=== PATIENT | female | born 1980 | race Caucasian/White ===

== ENCOUNTER 2017-09-17 10:18 | Observation (INO) | payer MEDICAID ==
[~2017-09-17] VITALS: Ht 160 cm; Wt 87.0 kg
[2017-09-17 10:25] VITALS: BP 130/69; PULSE 84; RESP 16; TEMP 99; O2SAT 97
[2017-09-17] MEDS ORDERED: ASPIRIN 81 MG CHEW TAB PO ONE (10:45)
[2017-09-17] MEDS ORDERED: SODIUM CHLORIDE 0.9% FLUSH 10 ML FLUSH IVF PRN (10:45)
--- NOTE | 2017-09-17 10:53 | PD ---
HPI . Chest pain Chief Complaint: Chest Pain Time Seen by Provider: 10:41 Travel History International Travel<30 days: No Contact w/Intl Traveler<30days: No Traveled to known affect area: No History of Present Illness HPI This patient presents with a three-day history of chest pain. The pain has been intermittent. It is getting progressively worse. She currently rates the pain at 7/10. She has not noticed any exacerbating or relieving factors. She states that the episodes last for just a few minutes and are associated with some mild diaphoresis. She also has noted some muscle spasms in both her left upper and left lower extremity which started at about the same time. She is a smoker and reports a strong family history for coronary artery disease. She states that her father from heart attack at age 58. [facility] Past Medical History Medical History: Denies Significant Hx Diminished Hearing: No Influenza Vaccination: No ?: Not LMP: NOW Past Surgical History Section: Yes (TWICE) Other Surgery: Yes (LUNG BIOPSY) Social History Alcohol Use: No Tobacco Use: Yes Allergies-Medications (Allergen,Severity, Reaction): Coded Allergies: caffeine (Verified Allergy, Unknown, 09/17/17) Reported Meds & Prescriptions Reported Meds & Active Scripts Active No Active Prescriptions or Reported Medications Review of Systems Except as stated in HPI: all other systems reviewed are Neg Physical Exam Narrative GENERAL: Awake and alert and in no acute distress. SKIN: Warm and dry. Normal color and turgor. HEAD: Normocephalic/atraumatic. EYES: Pupils are equal. Extraocular movements are intact. NECK: Normal range of motion. CARDIOVASCULAR: Regular rate and rhythm. Heart sounds are normal. RESPIRATORY: Nonlabored respirations. Lungs are clear with full air movement throughout. MUSCULOSKELETAL: Atraumatic. There is no calf tenderness or swelling. NEUROLOGICAL: Nonfocal. PSYCHIATRIC: Appropriate mood and affect. Data Data Last Documented VS Vital Signs Date Time Temp Pulse Resp B/P (MAP) Pulse Ox O2 Delivery O2 Flow Rate FiO2 09/17/17 11:54 66 09/17/17 11:24 18 133/85 (101) 97 Room Air 09/17/17 10:25 99.0 Orders Orders Basic Metabolic Panel (Bmp) (09/17/17 10:42) Complete Blood Count With Diff (09/17/17 10:42) Magnesium (Mg) (09/17/17 10:42) Troponin I (09/17/17 10:42) Chest, Single Ap (09/17/17 10:42) Ecg Monitoring (09/17/17 10:42) Iv Access Insert/Monitor (09/17/17 10:42) Oximetry (09/17/17 10:42) Aspirin Chew (Aspirin Chew) (09/17/17 10:45) Sodium Chloride 0.9% Flush (Ns Flush) (09/17/17 10:45) D-Dimer (09/17/17 10:50) Admit Order (Ed Use Only) (09/17/17 ) Vice Investigator / Telemetry CLARISSA.Q8H (09/17/17 12:30) Vital Signs (Adult) Q4H (09/17/17 12:30) Diet Npo (09/18/17 Breakfast) Diet Heart Healthy (09/17/17 Lunch) Activity Oob With Assistance (09/17/17 12:30) Labs Laboratory Tests Test 09/17/17 10:55 09/17/17 11:31 White Blood Count 11.3 TH/MM3 Red Blood Count 5.64 MIL/MM3 Hemoglobin 14.9 GM/DL Hematocrit 45.9 % Mean Corpuscular Volume 81.4 FL Mean Corpuscular Hemoglobin 26.5 PG Mean Corpuscular Hemoglobin Concent 32.5 % Red Cell Distribution Width 14.7 % Platelet Count 383 TH/MM3 Mean Platelet Volume 10.0 FL Neutrophils (%) (Auto) 55.0 % Lymphocytes (%) (Auto) 31.8 % Monocytes (%) (Auto) 6.8 % Eosinophils (%) (Auto) 3.5 % Basophils (%) (Auto) 2.9 % Neutrophils # (Auto) 6.2 TH/MM3 Lymphocytes # (Auto) 3.6 TH/MM3 Monocytes # (Auto) 0.8 TH/MM3 Eosinophils # (Auto) 0.4 TH/MM3 Basophils # (Auto) 0.3 TH/MM3 CBC Comment DIFF FINAL Differential Comment D-Dimer Quantitative (PE/DVT) 0.28 MG/L FEU Blood Urea Nitrogen 8 MG/DL Creatinine 0.88 MG/DL Random Glucose 112 MG/DL Calcium Level 9.6 MG/DL Magnesium Level 2.1 MG/DL Sodium Level 138 MEQ/L Potassium Level 3.7 MEQ/L Chloride Level 107 MEQ/L Carbon Dioxide Level 24.1 MEQ/L Anion Gap 7 MEQ/L Estimat Glomerular Filtration Rate 72 ML/MIN Troponin I LESS THAN 0.02 NG/ML MDM Medical Decision Making Medical Screen Exam Complete: Yes Emergency Medical Condition: Yes Interpretation(s) EKG shows a sinus rhythm with a rate of 94. No ST segment elevation or depression noted. Differential Diagnosis Differential diagnosis of chest pain includes but is not limited to musculoskeletal pain, pulmonary embolism, acute coronary syndrome, pneumonia, pleurisy Narrative Course This patient presents with a chief complaint of chest pain. An IV has been started. She has been given an aspirin. Cardiac evaluation is in process. There is also a d-dimer pending. Last Impressions Chest X-Ray 09/17/17 1042 Signed Impressions: Service Date/Time: Sunday, September 17, 2017 11:01 - CONCLUSION: Normal examination for a patient of this age. Gerardo Norton MD CBC Diagram 09/17/17 10:55 BMP Diagram 09/17/17 11:31 Calcium Level 9.6, Magnesium Level 2.1 trop < 0.02 D-dimer 0.28 The patient is amenable to admission to observation to the chest pain center. Physician Communication Physician Communication Dr. Rubalcava will admit her to the chest pain center. Diagnosis Primary Impression: Chest pain Qualified Codes: R07.9 - Chest pain, unspecified Admitting Information Admitting Physician Requests: Observation Scripts No Active Prescriptions or Reported Meds Condition: Stable Jordana Moya MD Sep 17, 2017 10:53
[2017-09-17 10:54] VITALS: BP 130/72; PULSE 84; RESP 18; O2SAT 98
[2017-09-17 11:10] LABS: AUTOMATED NEUTROPHIL # 6.2 TH/MM3 (1.8-7.7); BASOPHIL # 0.3 TH/MM3 (0-0.2); BASOPHIL % 2.9 % (0.0-2.0); EOSINOPHIL # 0.4 TH/MM3 (0-0.4); EOSINOPHIL % 3.5 % (0.0-4.0); HEMATOCRIT 45.9 % (35.0-46.0); HEMOGLOBIN 14.9 GM/DL (11.6-15.3); LYMPH % 31.8 % (9.0-44.0); LYMPHOCYTE # 3.6 TH/MM3 (1.0-4.8); MEAN CELL VOLUME 81.4 FL (80.0-100.0); MEAN CORPUSCULAR HEMOGLOBIN 26.5 PG (27.0-34.0); MEAN CORPUSCULAR HGB CONC 32.5 % (32.0-36.0); MONO % 6.8 % (0.0-8.0); MONOCYTE # 0.8 TH/MM3 (0-0.9); PLATELET COUNT 383 TH/MM3 (150-450); RED BLOOD COUNT 5.64 MIL/MM3 (4.00-5.30); RED CELL DISTRIBUTION WIDTH 14.7 % (11.6-17.2); WHITE BLOOD COUNT 11.3 TH/MM3 (4.0-11.0)
[2017-09-17 11:24] VITALS: BP 133/85; PULSE 88; RESP 18; O2SAT 97
--- NOTE | 2017-09-17 11:31 | RADRPT ---
EXAM DATE/TIME: 09/17/2017 11:01 [facility] COMPARISON: No previous studies available for comparison. INDICATIONS : Chest pain. MEDICAL HISTORY : right fungal lung mass SURGICAL HISTORY : right lung biopsy ENCOUNTER: Initial ACUITY: 3 days PAIN SCORE: 7/10 LOCATION: Bilateral chest FINDINGS: A single view of the chest demonstrates the lungs to be symmetrically aerated without evidence of mas s, infiltrate or effusion. The cardiomediastinal contours are unremarkable. Osseous structures are intact. CONCLUSION: Normal examination for a patient of this age. Gerardo Norton MD on September 17, 2017 at 11:29 Board Certified Radiologist. This report was verified electronically.
[2017-09-17 11:51] LABS: CHLORIDE 107 MEQ/L (98-107); SODIUM (NA) 138 MEQ/L (136-145)
[2017-09-17 11:54] LABS: BICARBONATE 24.1 MEQ/L (21.0-32.0); BLOOD UREA NITROGEN 8 MG/DL (7-18); CALCIUM 9.6 MG/DL (8.5-10.1); GLUCOSE,RANDOM 112 MG/DL (74-106); MAGNESIUM 2.1 MG/DL (1.5-2.5)
[2017-09-17 11:58] LABS: CREATININE 0.88 MG/DL (0.50-1.00); GLOMERULAR FILTRATION RATE 72 ML/MIN (>89)
[2017-09-17 12:02] LABS: TROPONIN I LESS THAN 0.02 NG/ML (0.02-0.05)
[2017-09-17] MEDS ORDERED: ACETAMINOPHEN/HYDROcodone 325 MG/7.5 MG TAB PO PRN (13:00)
[2017-09-17] MEDS ORDERED: NITROGLYCERIN 0.4 MG SL 25 TABS/BTL SL PRN (13:00)
[2017-09-17] MEDS ORDERED: ACETAMINOPHEN 500 MG CPLT PO PRN (13:00)
[2017-09-17] MEDS ORDERED: ONDANSETRON HCL 4 MG/2 ML VIAL IV PUSH PRN (13:00)
[2017-09-17] MEDS ORDERED: SODIUM CHLORIDE 0.9% FLUSH 10 ML FLUSH IV FLUSH PRN (13:00)
[2017-09-17 13:34] VITALS: BP 109/71; PULSE 65; RESP 18; O2SAT 98
[2017-09-17] MEDS ORDERED: MORPHINE SULFATE 2 MG/ML INJ IV PUSH PRN (13:45)
[2017-09-17 14:00] VITALS: BP 116/70; PULSE 68; RESP 14; TEMP 96.8; O2SAT 98
--- NOTE | 2017-09-17 14:38 | HHI.HP ---
[facility] Service [place] [facility] Primary Care Physician No Primary Care Physician Admission Diagnosis chest pain Diagnoses: (1) Chest pain Diagnosis: Principal Chief Complaint: Chest pain Travel History International Travel<30 Days: No Contact w/Intl Traveler <30 Da: No Traveled to Known Affected Are: No History of Present Illness This is a 37-year-old female with no chronic medical illnesses who presented to the hospital because three-day history of chest discomfort. Patient states over the last 3 days she is experiencing a left-sided chest pain that radiates into her back, up into her neck and one small spot into her shoulder blade. She states that is intermittent lasting for 1 minute at a time usually starts that is 7/10 making get as high as 9/10 on a pain scale. It resolved on its own. She indicates that nothing causes the pain happened. She could be at rest, watching TV and the pain can develop. She denies any nausea, vomiting, lightheadedness, dizziness, shortness of breath, dyspnea. She states that she is sweaty during the episodes and feels weak. She does have significant family history with father at age 58 from myocardial infarction so she came to the hospital for evaluation. Patient had workup done emergency department was unremarkable. Initial cardiac enzymes are negative, EKG was sinus rhythm with nonspecific T-wave abnormality. Is recommended by the ER physician that patient be observed in the chest pain center for further evaluation management. Review of Systems Cardiovascular: COMPLAINS OF: Chest pain Except as stated in HPI: all other systems reviewed are Neg Past Family Social History Past Medical History History of right lung fungal infection Past Surgical History Lung biopsy Right knee surgery Cholecystectomy 2 Reported Medications Reported Meds & Active Scripts Active No Active Prescriptions or Reported Medications Allergies: Coded Allergies: caffeine (Verified Allergy, Unknown, 09/17/17) Family History Reviewed is significant for father at age 58 from heart disease, mother is alive at 61. No indication of any diabetes, cancer, seizure, stroke Social History Patient continues smoke a quarter pack a cigarettes a day she is to smoke 2 pack a cigarettes a day since he was 15 years old. Patient has any alcohol or illicit drugs Physical Exam Vital Signs Vital Signs Date Time Temp Pulse Resp B/P (MAP) Pulse Ox O2 Delivery O2 Flow Rate FiO2 09/17/17 13:53 09/17/17 13:34 65 18 109/71 (84) 98 Room Air 09/17/17 13:34 60 09/17/17 11:54 66 09/17/17 11:24 88 18 133/85 (101) 97 Room Air 09/17/17 10:54 84 18 130/72 (91) 98 Room Air 09/17/17 10:36 88 99 Room Air 09/17/17 10:25 99.0 84 16 130/69 (89) 97 Physical Exam GENERAL: Well-developed, well-nourished, in no acute distress. alert and orientated HEENT: Head is normocephalic without any lesions or masses noted. Facial features are symmetric. Eyes: Pupils equal round reactive to light. Extraocular muscles are intact. Conjunctivae were clear. Oropharyngeal: Pharynx without any erythema edema. Tongue is midline without deviation. Buccal mucosa is moist without any masses or lesions NECK: Supple without any masses. Trachea midline no deviation. No JVD, no bruits are appreciated CARDIAC: Regular rhythm, regular rate. S1/S2 are heard. No murmurs gallops or rubs. LUNGS: Clear to auscultation bilaterally. No wheeze, rhonchi or rales. No use of accessory muscles on inspiration or expiration. ABDOMEN: Soft, nontender. Nondistended. Bowel sounds heard in all 4 quadrants. No organomegaly or masses. Negative rebound, negative guarding EXTREMITIES: No edema, pulses are equal bilaterally. No cyanosis or clubbing NEUROLOGY: Mood and affect appear appropriate. Cranial nerves II through XII grossly intact. Muscle strength 5/5 in upper and lower extremities bilaterally. Deep tendon reflexes are 2+ in upper and lower extremities bilaterally. Laboratory Laboratory Tests Test 09/17/17 10:55 09/17/17 11:31 White Blood Count 11.3 Red Blood Count 5.64 Hemoglobin 14.9 Hematocrit 45.9 Mean Corpuscular Volume 81.4 Mean Corpuscular Hemoglobin 26.5 Mean Corpuscular Hemoglobin Concent 32.5 Red Cell Distribution Width 14.7 Platelet Count 383 Mean Platelet Volume 10.0 Neutrophils (%) (Auto) 55.0 Lymphocytes (%) (Auto) 31.8 Monocytes (%) (Auto) 6.8 Eosinophils (%) (Auto) 3.5 Basophils (%) (Auto) 2.9 Neutrophils # (Auto) 6.2 Lymphocytes # (Auto) 3.6 Monocytes # (Auto) 0.8 Eosinophils # (Auto) 0.4 Basophils # (Auto) 0.3 CBC Comment DIFF FINAL Differential Comment D-Dimer Quantitative (PE/DVT) 0.28 Blood Urea Nitrogen 8 Creatinine 0.88 Random Glucose 112 Calcium Level 9.6 Magnesium Level 2.1 Sodium Level 138 Potassium Level 3.7 Chloride Level 107 Carbon Dioxide Level 24.1 Anion Gap 7 Estimat Glomerular Filtration Rate 72 Troponin I LESS THAN 0.02 Result Diagram: 09/17/17 1055 09/17/17 1131 Imaging Last Impressions Chest X-Ray 09/17/17 1042 Signed Impressions: Service Date/Time: Sunday, September 17, 2017 11:01 - CONCLUSION: Normal examination for a patient of this age. MD Marcin Jara VTE Risk Assessment Caprinmason VTE Risk Assessment: No/Low Risk (score <= 1) Caprini Risk Assessment Model Point Value = 1 Point Value = 2 Point Value = 3 Point Value = 5 Age 41-60 Minor surgery BMI > 25 kg/m2 Swollen legs Varicose veins or History of unexplained or recurrent spontaneous Oral contraceptives or hormone replacement Sepsis (< 1 month) Serious lung disease, including pneumonia (< 1 month) Abnormal pulmonary function Acute myocardial infarction Congestive heart failure (< 1 month) History of inflammatory bowel disease Medical patient at bed rest Age 61-74 Arthroscopic surgery Major open surgery (> 45 min) Laparoscopic surgery (> 45 min) Malignancy Confined to bed (> 72 hours) Immobilizing plaster cast Central venous access Age >= 75 History of VTE Family history of VTE Factor V Leiden Prothrombin [id number] Lupus anticoagulant Anticardiolipin antibodies Elevated serum homocysteine Heparin-induced thrombocytopenia Other congenital or acquired thrombophilia Stroke (< 1 month) Elective arthroplasty Hip, pelvis, or leg fracture Acute spinal cord injury (< 1 month) Prophylaxis Regimen Total Risk Factor Score Risk Level Prophylaxis Regimen 0-1 Low Early ambulation 2 Moderate Order ONE of the following: *Sequential Compression Device (SCD) *Heparin 5000 units SQ BID 3-4 Higher Order ONE of the following medications: *Heparin 5000 units SQ TID *Enoxaparin/Lovenox 40 mg SQ daily (WT < 150 kg, CrCl > 30 mL/min) *Enoxaparin/Lovenox 30 mg SQ daily (WT < 150 kg, CrCl > 10-29 mL/min) *Enoxaparin/Lovenox 30 mg SQ BID (WT < 150 kg, CrCl > 30 mL/min) AND/OR *Sequential Compression Device (SCD) 5 or more Highest Order ONE of the following medications: *Heparin 5000 units SQ TID (Preferred with Epidurals) *Enoxaparin/Lovenox 40 mg SQ daily (WT < 150 kg, CrCl > 30 mL/min) *Enoxaparin/Lovenox 30 mg SQ daily (WT < 150 kg, CrCl > 10-29 mL/min) *Enoxaparin/Lovenox 30 mg SQ BID (WT < 150 kg, CrCl > 30 mL/min) AND *Sequential Compression Device (SCD) Assessment and Plan Assessment and Plan Chest pain, atypical Patient with risk factors include tobacco use, family history of heart disease Patient has been ruled out for acute coronary event with serial cardiac enzymes have remained negative Serial EKGs are reviewed by myself showed sinus rhythm, nonspecific T-wave abnormality without any changes Exercise stress test was performed that did not indicate any acute abnormality or ischemia Continue aspirin, nitroglycerin as needed, morphine for pain control DVT prevention sequential compression devices Discharge disposition Discharge home in stable condition Activity: Ad aren. Diet: Healthy heart diet Medications per medication reconciliation Follow-up primary medical doctor in one week Problem Qualifiers (1) Chest pain: Qualified Codes: R07.9 - Chest pain, unspecified Michelet Rojas Sep 17, 2017 14:37
[2017-09-17 15:38] LABS: TROPONIN I LESS THAN 0.02 NG/ML (0.02-0.05)
[2017-09-17 16:00] VITALS: BP 113/58; PULSE 57; RESP 14; TEMP 97.1; O2SAT 97
--- NOTE | 2017-09-17 16:38 | EKG ---
Date Performed: 09/17/2017 Time Performed: 10:34:52 PTAGE: 37 years EKG: Sinus rhythm NONSPECIFIC T-WAVE ABNORMALITY BORDERLINE ECG NO PREVIOUS TRACING DOCTOR: Oniel Mock Interpretating Date/Time 09/17/2017 16:37:28
--- NOTE | 2017-09-17 17:09 | HHI.DCPOC ---
Discharge Care Plan Diagnosis: (1) Chest pain Goals to Promote Your Health * To prevent worsening of your condition and complications * To maintain your health at the optimal level Directions to Meet Your Goals Take your medications as prescribed Follow your dietary instruction Follow activity as directed Keep your appointments as scheduled Take your immunizations and boosters as scheduled If your symptoms worsen call your PCP, if no PCP go to Urgent Care Center or Emergency Room Smoking is Dangerous to Your Health. Avoid second hand smoke Call the 24-hour hour crisis hotline for domestic abuse at Michelet Rojas Sep 17, 2017 17:09
[2017-09-17] MEDS ORDERED: SODIUM CHLORIDE 0.9% FLUSH 10 ML FLUSH IV FLUSH SCH (21:00)
[2017-09-18] MEDS ORDERED: ASPIRIN 325 MG TAB PO SCH (09:00)
--- NOTE | 2017-09-18 10:24 | TR ---
Date Performed: 09/17/2017 Time Performed: 16:42:07 DOCTOR: Marty Carreon DRUG LIST: CLINICAL HISTORY: CHEST PAIN REASON FOR TEST: Chest pain REASON FOR ENDING: Completed Protocol OBSERVATION: Arrhythmia: None Chest Pain: None CONCLUSION: Patient tolerated STEVEN protocol with Total Exercise Time=8:14 Maximum XW=319 % Max HR Achieved=86.0% Maximum QV=767/92 , Testing stopped secondary to goals acheived. During peak exerci se, patient was asymptomatic, quick upsloping ST segments, HR and BP appropriate response to exercise .during recovery periodm HR and BP returned to baseline COMMENTS: Conclusion: Normal treadmill exercise. No evidence of ischemia.
--- NOTE | 2017-09-18 12:44 | EKG ---
Date Performed: 09/17/2017 Time Performed: 14:50:09 PTAGE: 37 years EKG: Sinus rhythm NORMAL ECG PREVIOUS TRACING : 09/17/2017 10.34 Since previous tracing, no significant change noted DOCTOR: Marty Carreon Interpretating Date/Time 09/18/2017 12:43:14
== END 2017-09-17 18:59 | disposition home or self-care (01) ==
LOC: PHED 10:18 → PHEDA 12:31 → PH3A 14:09
PROVIDERS: ADMIT Hospitalist; ATTEND Hospitalist
DX: R07.89 Other chest pain (principal); R53.1 Weakness; R61 Generalized hyperhidrosis; M62.838 Other muscle spasm; F17.210 Nicotine dependence, cigarettes, uncomplicated; Z82.49 Family history of ischemic heart disease and other diseases of the circulatory system
CPT/HCPCS: 71045; 80048; 82550; 83735; 84484; 85025; 85379; 93005; 93017; 99285; G0378